=== PATIENT | male | born 1980 | race Caucasian/White ===

== ENCOUNTER 2021-05-06 01:24 | Emergency (ER) | payer MEDICAID ==
[~2021-05-06] VITALS: Ht 165.1 cm; Wt 68.2 kg
--- NOTE | 2021-05-06 02:18 | NUR ---
GENERAL ILLNESS X 1 WEEK, STATES FEVER/COUGH AND ACHINESS ALL OVER.
[2021-05-06 03:12] VITALS: BP 123/82
== END 2021-05-06 03:13 | disposition home or self-care (01) ==
LOC: ER 01:25
DX: B34.9 Viral infection, unspecified (principal); Z20.822 Contact with and (suspected) exposure to COVID-19; R53.1 Weakness; R43.8 Other disturbances of smell and taste; R53.83 Other fatigue; F15.90 Other stimulant use, unspecified, uncomplicated; Z59.0 Homelessness; Z72.89 Other problems related to lifestyle; Z60.2 Problems related to living alone
CPT/HCPCS: 87635; 99283; C9803

== ENCOUNTER 2021-10-28 20:38 | Emergency (ER) | payer MEDICAID ==
[~2021-10-28] VITALS: Ht 165.1 cm; Wt 68.2 kg
[2021-10-28] MEDS ORDERED: acetaminophen 325mg tablet PO STA (20:45)
[2021-10-28] MEDS ORDERED: normal saline 1000ML IV soln IV ONE (20:45)
[2021-10-28] MEDS ORDERED: CefTRIAXone 2gm/D5W 50ml BAG 50 ML IV ONE (20:45)
[2021-10-28] MEDS ORDERED: LORazepam 2 mg/ml vial IV ONE ×2 (20:50→21:05)
[2021-10-28] MEDS ORDERED: normal saline 1000ml 1,000 ML IV ONE ×2 (21:05→22:30)
[2021-10-28 21:20] LABS: BASOPHILS # (AUTO) 0.1 X10'3 (0-0.2); EOSINOPHILS % (AUTO) 0.1 % (0-6); MONOCYTES # (AUTO) 0.6 X10'3 (0-0.9); MONOCYTES % (AUTO) 4.5 % (2-12)
[2021-10-28 21:21] LABS: BASOPHILS % (AUTO) 0.5 % (0-1); HEMOGLOBIN 13.9 g/dl (14.0-17.9); LYMPHOCYTES # (AUTO) 1.6 X10'3 (1.1-4.8); LYMPHOCYTES % (AUTO) 11.8 % (21-51); MEAN CORPUSCULAR HEMOGLOBIN 34.1 PG (27.0-31.0); MEAN CORPUSCULAR HGB CONC 33.9 g/dL (33.0-36.5); MEAN CORPUSCULAR VOLUME 100.6 FL (78-98); MEAN PLATELET VOLUME 8.4 FL (7.4-10.4); NEUTROPHILS # (AUTO) 11.2 X10'3 (1.8-7.7); NEUTROPHILS % (AUTO) 83.1 % (42-75); PLATELET COUNT 353 X10'3 (140-440); RED BLOOD COUNT 4.07 X10'6 (4.70-6.10); RED CELL DISTRIBUTION WIDTH 13.4 % (11.5-14.5); WHITE BLOOD COUNT 13.5 X10'3 (4.5-11.0)
[2021-10-28 21:37] LABS: ALANINE AMINOTRANSFERASE 42 U/L (12-78); ALBUMIN 4.3 G/DL (3.4-5.0); ALBUMIN/GLOBULIN RATIO 1.2 (1.1-1.5); ALKALINE PHOSPHATASE 81 IU/L (46-116); ANION GAP 10 (8-16); ASPARTATE AMINO TRANSFERASE 20 U/L (10-37); BILIRUBIN,TOTAL 0.1 MG/DL (0.1-1.0); BLOOD UREA NITROGEN 19 MG/DL (7-18); BUN/CREATININE RATIO 16.8 (5.4-32.0); CALCIUM 9.3 MG/DL (8.5-10.1); CHLORIDE 105 MMOL/L (99-107); CREATININE 1.13 MG/DL (0.60-1.10); GLUCOSE 109 MG/DL (70-104); POTASSIUM 3.7 MMOL/L (3.5-5.1); SODIUM 140 MMOL/L (135-145); TOTAL CARBON DIOXIDE 24.9 MMOL/L (24-32); TOTAL PROTEIN 7.9 G/DL (6.4-8.2); eGFR 73 ML/MIN
[2021-10-28 21:45] LABS: LIPASE 53 U/L (73-393)
[2021-10-28 21:51] LABS: ETHANOL < 0.010 GM/DL (0.0-0.010)
[2021-10-28 23:06] LABS: URINE AMPHETAMINE SCREEN POSITIVE (Neg); URINE BARBITUATE SCREEN NEGATIVE (Neg); URINE BENZODIAZEPINES SCREEN NEGATIVE (Neg); URINE CANNABINOID SCREEN NEGATIVE (Neg); URINE COCAINE SCREEN NEGATIVE (Neg); URINE METHADONE SCREEN NEGATIVE (Neg); URINE OPIATE SCREEN NEGATIVE (Neg); URINE PHENCYCLIDINE SCREEN NEGATIVE (Neg)
[2021-10-28 23:13] VITALS: BP 144/78
[2021-10-28 23:18] LABS: CLARITY,URINE CLEAR (Clear); COLOR,URINE YELLOW (Yellow); GLUCOSE, URINE NEGATIVE (Neg); KETONES,URINE TRACE mg/dl (Neg); LEUKOCYTE ESTERASE ,URINE NEGATIVE (Neg); NITRITES, URINE NEGATIVE (Neg); OCCULT BLOOD,URINE NEGATIVE (Neg); PROTEIN,URINE NEGATIVE (Neg); UROBILINOGEN,URINE 0.2 E.U/dL (0.2-1.0)
[2021-10-28 23:20] LABS: UA COLLECTION TYPE URINAL
== END 2021-10-28 23:38 | disposition home or self-care (01) ==
LOC: ER 20:39
DX: F15.129 Other stimulant abuse with intoxication, unspecified (principal); R00.0 Tachycardia, unspecified; R61 Generalized hyperhidrosis; Z87.11 Personal history of peptic ulcer disease; Z72.89 Other problems related to lifestyle; Z59.00 Homelessness unspecified
CPT/HCPCS: 36415; 71045; 74176; 80053; 80305; 80320; 81003; 83605; 83690; 83880; 84145; 84484; 85025; 87040; 93005; 96365; 96366; 96375; 96376; 99285; J0696; J2060; J7030

== ENCOUNTER 2021-10-29 00:50 | Emergency (ER) | payer MEDICAID ==
[~2021-10-29] VITALS: Ht 165.1 cm; Wt 70.5 kg
[2021-10-29 01:21] VITALS: BP 153/88
== END 2021-10-29 01:22 ==
LOC: ER 00:51
DX: R10.9 Unspecified abdominal pain (principal); Z87.11 Personal history of peptic ulcer disease; Z56.0 Unemployment, unspecified; Z72.89 Other problems related to lifestyle
CPT/HCPCS: 99283

== ENCOUNTER 2021-10-29 21:56 | Emergency (ER) | payer MEDICAID ==
[~2021-10-29] VITALS: Ht 165.1 cm; Wt 63.1 kg
[2021-10-29 22:45] VITALS: BP 142/104
[2021-10-30] MEDS ORDERED: OLANZapine 2.5MG tablet PO STA (00:36)
== END 2021-10-30 00:55 | disposition home or self-care (01) ==
LOC: ER 21:58
DX: F15.10 Other stimulant abuse, uncomplicated (principal); Z87.11 Personal history of peptic ulcer disease; Z72.89 Other problems related to lifestyle; Z59.00 Homelessness unspecified
CPT/HCPCS: 99283

== ENCOUNTER 2023-02-21 15:52 | Emergency (ER) | payer MEDICAID ==
[~2023-02-21] VITALS: Ht 165.1 cm; Wt 70.5 kg
[2023-02-21 16:35] VITALS: BP 147/88
[2023-02-21] MEDS ORDERED: LORazepam 1 MG tablet PO ONE (16:50)
== END 2023-02-21 17:18 | disposition home or self-care (01) ==
LOC: ER 15:53
DX: F15.10 Other stimulant abuse, uncomplicated (principal); F17.200 Nicotine dependence, unspecified, uncomplicated; Z59.00 Homelessness unspecified; Z56.0 Unemployment, unspecified
CPT/HCPCS: 99283

== ENCOUNTER 2023-02-23 04:25 | Emergency (ER) | payer MEDICAID ==
[~2023-02-23] VITALS: Ht 165.1 cm; Wt 75.0 kg
--- NOTE | 2023-02-23 04:54 | NUR ---
PT CHANGED INTO GREEN SCRUBS, ROOM CLEARED FOR SAFETY. PT IS PACING ROOM, RESPONDING TO INTERNAL STIMULI. APPEARS TO BE LOOKING AT THINGS THAT ARE NOT THERE. STUFFING PAPER TOWELS DOWN HIS PANTS
[2023-02-23 05:01] LABS: BASOPHILS # (AUTO) 0.1 X10'3 (0-0.2); BASOPHILS % (AUTO) 1.1 % (0-1); EOSINOPHILS # (AUTO) 0.1 X10'3 (0-0.9); EOSINOPHILS % (AUTO) 1.2 % (0-6); HEMATOCRIT 42.7 % (42.0-52.0); HEMOGLOBIN 14.4 g/dl (14.0-17.9); LYMPHOCYTES # (AUTO) 2.5 X10'3 (1.1-4.8); LYMPHOCYTES % (AUTO) 22.7 % (21-51); MEAN CORPUSCULAR HEMOGLOBIN 34.3 PG (27.0-31.0); MEAN CORPUSCULAR HGB CONC 33.7 g/dL (33.0-36.5); MEAN CORPUSCULAR VOLUME 101.8 FL (78-98); MEAN PLATELET VOLUME 7.8 FL (7.4-10.4); MONOCYTES # (AUTO) 1.2 X10'3 (0-0.9); MONOCYTES % (AUTO) 10.5 % (2-12); NEUTROPHILS # (AUTO) 7.1 X10'3 (1.8-7.7); NEUTROPHILS % (AUTO) 64.5 % (42-75); PLATELET COUNT 327 X10'3 (140-440); RED CELL DISTRIBUTION WIDTH 13.4 % (11.5-14.5)
[2023-02-23 05:11] LABS: CLARITY,URINE SLIGHTLY CLOUDY (Clear); COLOR,URINE YELLOW (Yellow); GLUCOSE, URINE NEGATIVE (Neg); KETONES,URINE TRACE mg/dl (Neg); LEUKOCYTE ESTERASE ,URINE NEGATIVE (Neg); NITRITES, URINE NEGATIVE (Neg); OCCULT BLOOD,URINE NEGATIVE (Neg); PROTEIN,URINE TRACE mg/dl (Neg); UROBILINOGEN,URINE 0.2 E.U/dL (0.2-1.0)
[2023-02-23 05:13] LABS: ALANINE AMINOTRANSFERASE 33 U/L (12-78); ALBUMIN 4.1 G/DL (3.4-5.0); ALBUMIN/GLOBULIN RATIO 1.1 (1.1-1.5); ALKALINE PHOSPHATASE 83 IU/L (46-116); ANION GAP 8 (8-16); ASPARTATE AMINO TRANSFERASE 29 U/L (10-37); BILIRUBIN,TOTAL 0.7 MG/DL (0.1-1.0); BLOOD UREA NITROGEN 14 MG/DL (7-18); BUN/CREATININE RATIO 11.9 (10.0-20.0); CHLORIDE 101 MMOL/L (99-107); CREATININE 1.18 MG/DL (0.60-1.10); GLUCOSE 121 MG/DL (70-104); POTASSIUM 3.5 MMOL/L (3.5-5.1); SODIUM 136 MMOL/L (135-145); TOTAL CARBON DIOXIDE 27.2 MMOL/L (24-32); TOTAL PROTEIN 7.7 G/DL (6.4-8.2); eGFR 68 ML/MIN
[2023-02-23] MEDS ORDERED: OLANZapine 2.5MG tablet PO SCH ×2 (05:15→20:00)
[2023-02-23 05:16] LABS: MUCUS STRANDS MANY /LPF (Neg); SQUAMOUS EPITHELIAL CELL,UR MANY /LPF (FEW); UA COLLECTION TYPE CLN CATCH MIDSTREAM; URINE AMPHETAMINE SCREEN POSITIVE (Neg); URINE BARBITUATE SCREEN NEGATIVE (Neg); URINE BENZODIAZEPINES SCREEN NEGATIVE (Neg); URINE CANNABINOID SCREEN NEGATIVE (Neg); URINE COCAINE SCREEN NEGATIVE (Neg); URINE METHADONE SCREEN NEGATIVE (Neg); URINE OPIATE SCREEN NEGATIVE (Neg); URINE PHENCYCLIDINE SCREEN NEGATIVE (Neg)
[2023-02-23 05:17] LABS: BACTERIA,URINE NONE SEEN /HPF (Neg); WBC,URINE 0-4 /HPF (0-4)
[2023-02-23 05:18] LABS: COARSE GRANULAR CAST 0-3 /LPF (NEGATIVE)
--- NOTE | 2023-02-23 05:20 | NUR ---
PT COMPLIANT WITH MEDS BUT CONTINUES TO STAND OUTSIDE HIS ROOM WITH DOORS SHUT, LOOKING INSIDE AND RESPONDING TO INTERNAL STIMULI
[2023-02-23 05:38] LABS: ETHANOL < 0.010 GM/DL (0.0-0.010)
--- NOTE | 2023-02-23 06:13 | NUR ---
OXYGEN TANK REMOVED FROM ROOM PT IS HAVING DELUSIONS THAT IT IS A "CAN OF BEANS" PLACED IN THE ROOM TO "LURE THE BEAR" INTO ROOM.
--- NOTE | 2023-02-23 06:29 | NUR ---
received patient from ED. Assisted to to room 24. Patient laying down at this time. Will assume care of patient
[2023-02-23] MEDS ORDERED: nicotine 14mg patch - 24hr TD ONE (08:20)
--- NOTE | 2023-02-23 10:00 | NUR ---
patient slept through breakfast. order for nicotine patch and zyprexa BID. vitals remain stable patient sleeping hard since he left ER room.
--- NOTE | 2023-02-23 12:38 | NUR ---
Pt asleep still. Lunch at bedside. unable to wake up to eat. Therapist saw patient and said she will come back after he sleeps a few more hours. all safety measures in place and call light in reach. will continue to monitor.
--- NOTE | 2023-02-23 15:16 | NUR ---
patient continues to sleep.
--- NOTE | 2023-02-23 17:34 | NUR ---
patient awake at bedside. has a blank look on face. speech is spiratic and unable to complete a full sentence. water and coffee at bedside. denies any pain at this time. all safety measures in place and call light in reach.will continue to monitor.
[2023-02-23 19:24] VITALS: BP 115/73
== END 2023-02-23 19:27 | disposition home or self-care (01) ==
LOC: ER 04:25
DX: F29 Unspecified psychosis not due to a substance or known physiological condition (principal); Z20.822 Contact with and (suspected) exposure to COVID-19; F15.10 Other stimulant abuse, uncomplicated; Z59.00 Homelessness unspecified; Z56.0 Unemployment, unspecified
CPT/HCPCS: 36415; 80053; 80305; 80320; 81001; 84443; 85025; 87811; 99285

== ENCOUNTER 2023-04-09 05:55 | Emergency (ER) | payer MEDICAID ==
[~2023-04-09] VITALS: Ht 165.1 cm; Wt 75.0 kg
[2023-04-09 06:17] VITALS: BP 146/107; PULSE 117; RESP 20; TEMP 99.3; O2SAT 97
[2023-04-09] MEDS ORDERED: OLAN5TAB3 PO (07:54)
[2023-04-09] MEDS ORDERED: LORazepam 1 MG tablet PO ONE (07:55)
[2023-04-09] MEDS ORDERED: OLANZapine 5mg rapidly disint. tablet PO ONE (07:55)
[2023-04-09 08:08] LABS: BILIRUBIN,URINE NEGATIVE (Neg); CLARITY,URINE CLEAR (Clear); COLOR,URINE YELLOW (Yellow); GLUCOSE, URINE NEGATIVE (Neg); KETONES,URINE NEGATIVE (Neg); LEUKOCYTE ESTERASE ,URINE NEGATIVE (Neg); NITRITES, URINE NEGATIVE (Neg); OCCULT BLOOD,URINE NEGATIVE (Neg); PH,URINE 5.5 (4.8-8.0); PROTEIN,URINE 30 mg/dl (Neg); UROBILINOGEN,URINE 0.2 E.U/dL (0.2-1.0)
[2023-04-09 08:11] LABS: UA COLLECTION TYPE VOIDED
[2023-04-09 08:18] LABS: BACTERIA,URINE NONE SEEN /HPF (Neg); FINE GRANULAR CAST 0-3 /LPF (NEGATIVE); HYALINE CASTS 0-3 /LPF (NEGATIVE); MUCUS STRANDS FEW /LPF (Neg); RBC,URINE NONE SEEN /HPF (0-2); SQUAMOUS EPITHELIAL CELL,UR FEW /LPF (FEW); WBC,URINE NONE SEEN /HPF (0-4)
[2023-04-09 08:39] LABS: URINE AMPHETAMINE SCREEN POSITIVE (Neg); URINE BARBITUATE SCREEN NEGATIVE (Neg); URINE BENZODIAZEPINES SCREEN NEGATIVE (Neg); URINE CANNABINOID SCREEN NEGATIVE (Neg); URINE COCAINE SCREEN NEGATIVE (Neg); URINE METHADONE SCREEN NEGATIVE (Neg); URINE OPIATE SCREEN NEGATIVE (Neg); URINE PHENCYCLIDINE SCREEN NEGATIVE (Neg)
== END 2023-04-09 08:52 | disposition home or self-care (01) ==
LOC: ER 05:56
DX: F41.9 Anxiety disorder, unspecified (principal); F15.20 Other stimulant dependence, uncomplicated; F17.200 Nicotine dependence, unspecified, uncomplicated; Z79.899 Other long term (current) drug therapy; Z59.00 Homelessness unspecified
CPT/HCPCS: 80305; 81001; 99283

== ENCOUNTER 2023-12-02 04:33 | Emergency (ER) | payer MEDICAID ==
[~2023-12-02] VITALS: Ht 165.1 cm; Wt 70.5 kg
[~2023-12-02 04:33] MED LIST: OLAN5TAB3 PO
[2023-12-02 04:39] VITALS: TEMP 98.9
[2023-12-02 07:10] VITALS: BP 144/96; PULSE 111; RESP 17; O2SAT 99
== END 2023-12-02 09:32 | disposition home or self-care (01) ==
LOC: ER 04:33
DX: F15.90 Other stimulant use, unspecified, uncomplicated (principal); F41.9 Anxiety disorder, unspecified; Z56.0 Unemployment, unspecified; Z59.9 Problem related to housing and economic circumstances, unspecified; Z87.19 Personal history of other diseases of the digestive system; Z79.899 Other long term (current) drug therapy
CPT/HCPCS: 93005; 99283

== ENCOUNTER 2023-12-02 20:08 | Emergency (ER) | payer MEDICAID ==
[~2023-12-02] VITALS: Ht 165.1 cm; Wt 70.5 kg
[2023-12-03] MEDS: olanzapine 10mg tablet PO STA (05:13)
[2023-12-03 05:22] LABS: BASOPHILS # (AUTO) 0.2 X10'3 (0-0.2); BASOPHILS % (AUTO) 1.8 % (0-1); EOSINOPHILS # (AUTO) 0.1 X10'3 (0-0.9); EOSINOPHILS % (AUTO) 0.9 % (0-6); HEMATOCRIT 44.2 % (42.0-52.0); HEMOGLOBIN 14.8 g/dl (14.0-17.9); LYMPHOCYTES % (AUTO) 17.8 % (21-51); MEAN CORPUSCULAR HEMOGLOBIN 33.9 PG (27.0-31.0); MEAN CORPUSCULAR HGB CONC 33.5 g/dL (33.0-36.5); MEAN CORPUSCULAR VOLUME 101.1 FL (78-98); MEAN PLATELET VOLUME 8.2 FL (7.4-10.4); MONOCYTES # (AUTO) 1.1 X10'3 (0-0.9); MONOCYTES % (AUTO) 9.9 % (2-12); NEUTROPHILS # (AUTO) 7.8 X10'3 (1.8-7.7); NEUTROPHILS % (AUTO) 69.6 % (42-75); PLATELET COUNT 327 X10'3 (140-440); RED BLOOD COUNT 4.37 X10'6 (4.70-6.10); RED CELL DISTRIBUTION WIDTH 12.8 % (11.5-14.5); WHITE BLOOD COUNT 11.3 X10'3 (4.5-11.0)
[2023-12-03 05:28] LABS: ALBUMIN 4.3 G/DL (3.4-5.0); ANION GAP 13 (8-16); BLOOD UREA NITROGEN 17 MG/DL (7-18); BUN/CREATININE RATIO 16.2 (10.0-20.0); CALCIUM 9.7 MG/DL (8.5-10.1); CHLORIDE 99 MMOL/L (99-107); CREATININE 1.05 MG/DL (0.60-1.10); ETHANOL < 10 MG/DL (<10); GLUCOSE 97 MG/DL (70-104); POTASSIUM 3.9 MMOL/L (3.5-5.1); SODIUM 137 MMOL/L (135-145); TOTAL CARBON DIOXIDE 24.6 MMOL/L (24-32); eCRCL 81 ML/MIN; eGFR 78 ML/MIN
[2023-12-03 06:12] LABS: BILIRUBIN,URINE SMALL (Neg); CLARITY,URINE CLEAR (Clear); GLUCOSE, URINE NEGATIVE (Neg); KETONES,URINE >=80 mg/dl (Neg); LEUKOCYTE ESTERASE ,URINE NEGATIVE (Neg); NITRITES, URINE NEGATIVE (Neg); OCCULT BLOOD,URINE NEGATIVE (Neg); PROTEIN,URINE TRACE mg/dl (Neg); UROBILINOGEN,URINE 0.2 E.U/dL (0.2-1.0)
[2023-12-03 06:21] LABS: COLOR,URINE DARK YELLOW (Yellow); UA COLLECTION TYPE CLN CATCH MIDSTREAM
[2023-12-03 06:23] LABS: BACTERIA,URINE NONE SEEN /HPF (Neg); HYALINE CASTS 0-3 /LPF (NEGATIVE); MUCUS STRANDS MODERATE /LPF (Neg); RBC,URINE 0-2 /HPF (0-2); SQUAMOUS EPITHELIAL CELL,UR FEW /LPF (FEW); WBC,URINE 0-4 /HPF (0-4)
[2023-12-03 06:42] LABS: URINE AMPHETAMINE SCREEN POSITIVE (Neg); URINE BARBITUATE SCREEN NEGATIVE (Neg); URINE BENZODIAZEPINES SCREEN NEGATIVE (Neg); URINE CANNABINOID SCREEN NEGATIVE (Neg); URINE COCAINE SCREEN NEGATIVE (Neg); URINE METHADONE SCREEN NEGATIVE (Neg); URINE OPIATE SCREEN POSITIVE (Neg); URINE PHENCYCLIDINE SCREEN NEGATIVE (Neg)
[2023-12-03 09:25] VITALS: BP 129/74; PULSE 100; RESP 14; TEMP 98; O2SAT 98
== END 2023-12-03 10:37 | disposition still patient (30) ==
LOC: ER 20:09
DX: F15.10 Other stimulant abuse, uncomplicated (principal); Z20.822 Contact with and (suspected) exposure to COVID-19; Z79.899 Other long term (current) drug therapy
CPT/HCPCS: 36415; 80048; 80305; 80320; 81001; 85025; 87811; 93005; 99284

== ENCOUNTER 2024-04-13 20:53 | Emergency (ER) | payer MEDICAID ==
[~2024-04-13] VITALS: Ht 165.1 cm; Wt 69.5 kg
[2024-04-13 20:55] VITALS: TEMP 97.8
[2024-04-13] MEDS ORDERED: OLANZapine 2.5MG tablet PO SCH (21:40)
[2024-04-13] MEDS: olanzapine 10mg tablet PO SCH (21:49)
[2024-04-13 21:54] LABS: BASOPHILS # (AUTO) 0.2 X10'3 (0-0.2); BASOPHILS % (AUTO) 1.8 % (0-1); EOSINOPHILS # (AUTO) 0.2 X10'3 (0-0.9); EOSINOPHILS % (AUTO) 1.8 % (0-6); HEMATOCRIT 43.2 % (42.0-52.0); HEMOGLOBIN 14.6 g/dl (14.0-17.9); LYMPHOCYTES # (AUTO) 3.6 X10'3 (1.1-4.8); MEAN CORPUSCULAR HEMOGLOBIN 34.5 PG (27.0-31.0); MEAN CORPUSCULAR HGB CONC 33.8 g/dL (33.0-36.5); MEAN CORPUSCULAR VOLUME 101.9 FL (78-98); MEAN PLATELET VOLUME 8.1 FL (7.4-10.4); MONOCYTES % (AUTO) 9.4 % (2-12); NEUTROPHILS # (AUTO) 5.6 X10'3 (1.8-7.7); PLATELET COUNT 291 X10'3 (140-440); RED BLOOD COUNT 4.24 X10'6 (4.70-6.10); WHITE BLOOD COUNT 10.6 X10'3 (4.5-11.0)
[2024-04-13 22:03] LABS: ALBUMIN 4.3 G/DL (3.4-5.0); ANION GAP 14 (8-16); BLOOD UREA NITROGEN 23 MG/DL (7-18); BUN/CREATININE RATIO 24.7 (10.0-20.0); CALCIUM 8.9 MG/DL (8.5-10.1); CHLORIDE 101 MMOL/L (99-107); CREATININE 0.93 MG/DL (0.60-1.10); GLUCOSE 74 MG/DL (70-104); POTASSIUM 3.8 MMOL/L (3.5-5.1); SODIUM 137 MMOL/L (135-145); TOTAL CARBON DIOXIDE 22.4 MMOL/L (24-32); eCRCL 91 ML/MIN; eGFR 90 ML/MIN
[2024-04-13 22:15] LABS: ETHANOL < 10 MG/DL (<10)
[2024-04-13] MEDS ORDERED: NO HOME MEDS (22:26)
[2024-04-13 23:03] LABS: URINE AMPHETAMINE SCREEN POSITIVE (Neg); URINE BARBITUATE SCREEN NEGATIVE (Neg); URINE BENZODIAZEPINES SCREEN NEGATIVE (Neg); URINE CANNABINOID SCREEN NEGATIVE (Neg); URINE COCAINE SCREEN NEGATIVE (Neg); URINE METHADONE SCREEN NEGATIVE (Neg); URINE OPIATE SCREEN NEGATIVE (Neg); URINE PHENCYCLIDINE SCREEN NEGATIVE (Neg)
[2024-04-14 05:47] VITALS: BP 83/60; PULSE 88; O2SAT 96
[2024-04-14] MEDS ORDERED: OLANZapine 2.5MG tablet PO SCH (08:00)
[2024-04-14 08:25] VITALS: RESP 17
== END 2024-04-14 15:17 | disposition home or self-care (01) ==
LOC: ER 20:54
DX: F22 Delusional disorders (principal); F60.0 Paranoid personality disorder; F15.90 Other stimulant use, unspecified, uncomplicated; Z72.89 Other problems related to lifestyle; Z60.2 Problems related to living alone; Z59.00 Homelessness unspecified; Z56.0 Unemployment, unspecified; Z20.822 Contact with and (suspected) exposure to COVID-19
CPT/HCPCS: 36415; 80048; 80305; 80320; 84443; 85025; 87811; 99284

== ENCOUNTER 2024-06-27 17:57 | Emergency (ER) | payer MEDICAID ==
[~2024-06-27] VITALS: Ht 165.1 cm; Wt 72.7 kg
[~2024-06-27 17:57] MED LIST changes: +NO HOME MEDS; -OLAN5TAB3 PO
[2024-06-27 18:01] VITALS: BP 122/70; TEMP 97.5
[2024-06-27] MEDS ORDERED: DEXAMETHASONE 6 MG TABLET PO SCH (19:25)
[2024-06-27] MEDS: albuterol 2.5 MG/3 ML nebule NEB ONE (19:45)
[2024-06-27 19:46] VITALS: PULSE 88; RESP 16; O2SAT 96
[2024-06-27] MEDS: DEXAMETHASONE 6 MG TABLET PO ONE (19:47)
[2024-06-27 19:57] VITALS: PULSE 88; RESP 16; O2SAT 96
[2024-06-27] MEDS ORDERED: ALBU8HFA INH (20:01)
[2024-06-27] MEDS ORDERED: DEC4T PO (20:01)
== END 2024-06-27 20:11 | disposition home or self-care (01) ==
LOC: ER 17:58
DX: R05.1 Acute cough (principal); Z20.822 Contact with and (suspected) exposure to COVID-19; F15.90 Other stimulant use, unspecified, uncomplicated; F17.200 Nicotine dependence, unspecified, uncomplicated; Z87.11 Personal history of peptic ulcer disease; Z59.00 Homelessness unspecified
CPT/HCPCS: 36415; 71045; 87811; 94640; 94760; 99284; J8540

== ENCOUNTER 2024-12-01 20:01 | Emergency (ER) | payer MEDICAID ==
[~2024-12-01] VITALS: Ht 165.1 cm; Wt 68.4 kg
[2024-12-01 20:16] VITALS: BP 110/70; PULSE 89; RESP 18; O2SAT 96
[2024-12-01] MEDS ORDERED: DIPH25TA62 PO (20:50)
[2024-12-01] MEDS: diphenhydrAMINE 50 mg/ml inj IM ONE (21:14)
[2024-12-01 21:20] VITALS: TEMP 98.3
== END 2024-12-01 21:20 | disposition home or self-care (01) ==
LOC: ER 20:01
DX: G24.9 Dystonia, unspecified (principal); T78.8XXA Other adverse effects, not elsewhere classified, initial encounter; F15.90 Other stimulant use, unspecified, uncomplicated; X58.XXXA Exposure to other specified factors, initial encounter
CPT/HCPCS: 96372; 99283; J1200

== ENCOUNTER 2024-12-28 00:15 | Emergency (ER) | payer MEDICAID ==
[~2024-12-28] VITALS: Ht 165.1 cm; Wt 77.0 kg
[~2024-12-28 00:15] MED LIST changes: +DIPH25TA62 PO
[2024-12-28 00:17] VITALS: TEMP 99.2
[2024-12-28] MEDS: haloperidol lactate 5mg/ml inj IM ONE (00:33)
[2024-12-28] MEDS: diazepam inj 5 MG/ML inj. IV ONE (00:33)
[2024-12-28] MEDS: diphenhydrAMINE 50 mg/ml inj IV ONE (00:33)
--- NOTE | 2024-12-28 00:48 | ELECTROCARDIOGRAPH REPORT ---
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 Dede Worthington Measurements Intervals [place] Rate: 124 P: 19 UT: 141 QRS: 22 QRSD: 77 T: 64 QT: 300 QTc: 431 Interpretive Statements Sinus tachycardia Electronically Signed On 12-28-2024 1:55:[address] Dede Worthington Please click the below link to view image of tracing.
--- NOTE | 2024-12-28 01:29 | Physician Documentation ---
History of Present Illness ~ Chief Complaint: Hallucinations Stated Complaint: PARANOID Time Seen by MD: 01:28 OK to notify your PCP?: Yes Primary Medical Doctor: NONE Source: patient, RN/MD, EMS, RN notes reviewed, EMS notes reviewed, old records Mode of Arrival: EMS, Ambulatory Exam Limitations: no limitations HPI 44-year-old male, with a history of bipolar disorder and depression, brought to the ED via EMS with concerns of paranoia and visual/auditory hallucinations. Patient believes people are trying to hurt him. He is also seeing animals that are trying to harm him. Patient admits that he stopped taking his psychiatric medications approximately one week ago. He also admits to using methamphetamine this evening, after being clean since August. Finally he notes some body aches and mild shortness of breath at this time. Medication Reconciliation Allergies: Coded Allergies: No Known Allergies (Unverified , 12/28/24) Scheduled Aripiprazole (Aripiprazole), 1 TAB PO DAILY, (Reported) Sertraline HCl (Sertraline HCl), 1 TAB PO DAILY, (Reported) Discontinued Medications Diphenhydramine HCl (Benadryl Allergy), 2 TAB PO HS Discontinued Reason: Other Home Med List (No Home Medications), (Reported) Discontinued Reason: Other Past Medical History Past Medical History: Peptic Ulcer Disease, Bipolar, Depression Past Surgical History: no surgical history Alcohol Use: Occasionally Drug Use: methamphetamine Lives with: Alone Lives In: Homeless Occupation: unemployed Review of Systems All Other Systems at this time: Reviewed and Negative ROS As stated above in the HPI, otherwise all systems are reviewed and negative. Physical Exam Vital Signs: RN Vital Signs have been reviewed: Yes, Temperature: 99.2, Source: Oral, Heart Rate: 145, Respiratory Rate: 16, BP: 140/85, Pulse Oximetry: 97, Weight: 77.000 Oxygen Flow Rate: 0 Pulse Oximetry Reflects: adequate oxygenation Physical Exam General: The patient is well developed, well nourished, nontoxic appearing and is in mild distress. Skin: [place], warm and dry with no rashes. HEENT: Head was normocephalic and atraumatic. Chest: Clear to auscultation bilaterally without wheezes, rales or rhonchi. No accessory muscle use. No dullness to percussion. Heart: Tachycardic, regular rhythm. S1, S2. No murmurs. Palpation of the chest wall was normal. No rubs or thrills. Abdomen: Soft, nontender and nondistended. Positive bowel sounds. No guarding or rebound. Extremities: No cyanosis, clubbing or edema. The patient moves all extremities. Pulses were equal and symmetric. Neurologic: Motor and sensation grossly intact. Cranial nerves II-XII grossly intact. A & O x4. Psychologic: Clutching chest with his arms. Positive auditory and visual hallucinations. No SI or HI. No agitation. Progress Progress Note 0545: Patient denies chest pain, shortness of breath, any skin breaks or redness. He did have some mild abdominal pain earlier. No known source for his white count. 0630: Care of patient passed to Dr. Chambers, oncoming physician, pending repeats lab results after fluids. Results/Orders Reviewed/noted all lab results: Yes Results/Orders Orders - JAMES DE LA CRUZ MD Electrocardiogram (12/28/24 00:43) Med Rec (12/28/24:34) 1799.11 (12/28/24:34) Close Observation Level (12/28/24:34) Covid19 Binax Poc Result Entry (12/28/24:34) Substance Use Navigator (12/28/24:34) Chest,Single View (12/28/24 04:04) Completed Orders - JAMES DE LA CRUZ MD Diazepam Inj (Valium Inj) (12/28/24 00:30) Diphenhydramine Inj (Benadryl Inj.) (12/28/24 00:30) Haloperidol Lact. (Haldol) (12/28/24 00:30) Electrocardiogram (12/28/24 00:43) Cbc/Diff (12/28/24 01:34) Drug Screen, Urine (12/28/24:34) Ethanol (12/28/24:34) TSH (12/28/24:34) BMP (12/28/24:34) Regular Diet (12/28/24 Breakfast) Aripiprazole Tablet (Abilify Tablet) (12/28/24 01:45) Nicotine 14mg Patch-24hr (Habitrol Patch (12/28/24 02:40) Ua With Microscopic (12/28/24 03:05) Normal Saline 1000ml (Sodium Chloride 10 (12/28/24 04:05) Chest,Single View (12/28/24 04:04) Procalcitonin (12/28/24 04:04) Aripiprazole Tablet (Abilify Tablet) (12/29/24 08:00) Sertraline Tablet (Zoloft Tablet) (12/29/24 08:00) Laboratory Tests Test 12/28/24 00:30 12/28/24 02:45 12/28/24 03:05 12/28/24 09:35 White Blood Count 23.7 H 12.9 H Red Blood Count 4.67 L 3.91 L Hemoglobin 16.1 13.5 L Hematocrit 46.9 39.1 L Mean Corpuscular Volume 100.4 H 100.2 H Mean Corpuscular Hemoglobin 34.6 H 34.5 H Mean Corpuscular Hemoglobin Concent 34.4 34.4 Red Cell Distribution Width 13.3 13.0 Platelet Count 348 264 Mean Platelet Volume 8.2 7.5 Neutrophils (%) (Auto) 85.0 H 66.6 Lymphocytes (%) (Auto) 8.0 L 21.1 Monocytes (%) (Auto) 6.7 10.9 Eosinophils (%) (Auto) 0 0.5 Basophils (%) (Auto) 0.3 0.9 Neutrophils # (Auto) 20.1 H 8.6 H Lymphocytes # (Auto) 1.9 2.7 Monocytes # (Auto) 1.6 H 1.4 H Eosinophils # (Auto) 0.0 0.1 Basophils # (Auto) 0.1 0.1 CBC Comment Sodium Level 143 Potassium Level 4.3 Chloride Level 107 Carbon Dioxide Level 23.3 L Anion Gap 13 Blood Urea Nitrogen 17 Creatinine 1.33 H Estimated GFR/1.73 m2 59 BUN/Creatinine Ratio 12.8 Glucose Level 115 H Calcium Level 9.3 Albumin 4.7 Procalcitonin 1.15 H Thyroid Stimulating Hormone (TSH) 0.63 Chemistry Comments Ethyl Alcohol Level < 10 SARS-CoV-2 Antigen (Rapid) Negative Urine Specimen Description Cln catch midstream Urine Color Yellow Urine Clarity Clear Urine pH 5.5 Urine Specific [place] >=1.030 Urine Protein Negative Urine Glucose (UA) Negative Urine Ketones Negative Urine Occult Blood Trace-intact Urine Nitrite Negative Urine Bilirubin Negative Urine Urobilinogen 0.2 Urine Leukocyte Esterase Negative Urine RBC 0-2 Urine WBC 0-4 Urine Squamous Epithelial Cells Few Urine Bacteria Few Urine Hyaline Casts 0-3 Urine Mucus Few Urine Sperm Few Volume Urine Centrifuged 10 ml Urine Comment Urine Opiates Screen Negative Urine Methadone Screen Negative Urine Fentanyl Screen Negative Urine Barbiturates Screen Negative Urine Phencyclidine Screen Negative Urine Amphetamines Screen Positive Urine Benzodiazepines Screen Positive Urine Cocaine Screen Negative Urine Cannabinoids Screen Negative Drug Screen Comment Lactic Acid Level 2.6 H Test 12/28/24 12:49 Lactic Acid Level 1.3 Microbiology Date/Time Source Procedure Growth Status 12/28/24 09:53 Blood Hand Right Blood Culture - Preliminary NO GROWTH AFTER 4 DAYS Resulted Re-Evaluation Re-Evaluation : Re-Evaluation: Unchanged Progress Patient was medically cleared for mental health evaluation. Patient had significant WBC at 23.7 MCV 100.4 consistent with heavy drinking no anemia hemoglobin 16 hematocrit 46. Platelets 348. Chemistry was reassuring with a BUN of 17 creatinine 1.33 with a mild dehydration. Lactic acid was elevated 2.2nd one after hydration was 1.3 procalcitonin was elevated at 1.15 suggesting possibility of infection however urinalysis was within normal limits. Chest x- ray was also within normal limits. Tox screen was positive for methamphetamine and benzodiazepines. He was no clear etiology. However after hydration patient later had a white count of 12.9 suggesting no actual infection. There was no need for any antibiotics at this time. Patient will be signed out to the next physician in case he spikes a fever or decompensates but otherwise patient was medically cleared for mental health treatment transport and care. 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 James De La Cruz Measurements Intervals [place] Rate: 124 P: 19 SC: 141 QRS: 22 QRSD: 77 T: 64 QT: 300 QTc: 431 Interpretive Statements Sinus tachycardia Electronically Signed On 12-28-2024 1:55:[address] James De La Cruz (interpreted by me) Chest X-Ray : Additional Comments CHEST RADIOGRAPH Indication: cough wbc elevated Technique: Single frontal view of the chest was obtained COMPARISON: DI CHEST,SINGLE VIEW on DOS: 06/27/24, CHEST,SINGLE VIEW on DOS: 10/28/21 FINDINGS: Lines and Tubes: None Lungs: Clear Pleura: No effusion. No pneumothorax. Cardiomediastinal contours: Unremarkable Bones: Unremarkable IMPRESSION: 1. No acute disease. Reviewed by me, Dr. De La Cruz. Medical Decision Making Findings Was evaluated by [facility]. 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 At this point he is no longer hearing voices and has a safety plan for discharge. States he was ready to go home Differential Dx:Considerations: Include: Alcohol abuse, Anxiety, Bipolar disorder, Conversion disorder, Depression, Encephaloathy, Homicidal, Panic disorder, Personality disorder, Schizophrenia, Substance abuse, Suicidal, Other Departure Disposition: 30 STILL A PATIENT Impression: Primary Impression: Psychosis Qualified Codes: F29 - Unspecified psychosis not due to a substance or known physiological condition Additional Impression: Leukocytosis Qualified Codes: D72.829 - Elevated white blood cell count, unspecified Condition: Stable Education Educated: Patient Educated regarding: diagnosis, need for follow up Signature Scribe Signature: Scribed for James De La Cruz MD by Dora Hutson . 12/28/24 01:59 Attestation: The note accurately reflects work and decisions made by me.James De La Cruz MD 12/28/24 01:29 JAMES DE LA CRUZ MD December 28, 2024 01:29 DORA COCHRAN December 28, 2024 02:07 MCKENZIE OLIVAS NP December 28, 2024 14:29
[2024-12-28 01:45] LABS: BASOPHILS # (AUTO) 0.1 X10'3 (0-0.2); BASOPHILS % (AUTO) 0.3 % (0-1); EOSINOPHILS % (AUTO) 0 % (0-6); HEMATOCRIT 46.9 % (42.0-52.0); HEMOGLOBIN 16.1 g/dl (14.0-17.9); LYMPHOCYTES # (AUTO) 1.9 X10'3 (1.1-4.8); MEAN CORPUSCULAR HEMOGLOBIN 34.6 PG (27.0-31.0); MEAN CORPUSCULAR HGB CONC 34.4 g/dL (33.0-36.5); MEAN CORPUSCULAR VOLUME 100.4 FL (78-98); MEAN PLATELET VOLUME 8.2 FL (7.4-10.4); MONOCYTES # (AUTO) 1.6 X10'3 (0-0.9); MONOCYTES % (AUTO) 6.7 % (2-12); NEUTROPHILS # (AUTO) 20.1 X10'3 (1.8-7.7); PLATELET COUNT 348 X10'3 (140-440); RED BLOOD COUNT 4.67 X10'6 (4.70-6.10); RED CELL DISTRIBUTION WIDTH 13.3 % (11.5-14.5); WHITE BLOOD COUNT 23.7 X10'3 (4.5-11.0)
[2024-12-28 01:52] LABS: ALBUMIN 4.7 G/DL (3.4-5.0); ANION GAP 13 (8-16); BLOOD UREA NITROGEN 17 MG/DL (7-18); BUN/CREATININE RATIO 12.8 (10.0-20.0); CALCIUM 9.3 MG/DL (8.5-10.1); CHLORIDE 107 MMOL/L (99-107); CREATININE 1.33 MG/DL (0.60-1.10); GLUCOSE 115 MG/DL (70-104); POTASSIUM 4.3 MMOL/L (3.5-5.1); SODIUM 143 MMOL/L (135-145); TOTAL CARBON DIOXIDE 23.3 MMOL/L (24-32); eCRCL 63 ML/MIN; eGFR 59 ML/MIN
[2024-12-28 02:20] LABS: THYROID STIMULATING HORMONE 0.63 ulU/ml (0.34-4.50)
[2024-12-28 02:22] LABS: ETHANOL < 10 MG/DL (<10)
[2024-12-28] MEDS ORDERED: ARIP5TAB53 PO (02:33)
[2024-12-28] MEDS ORDERED: SERT-432 PO (02:33)
[2024-12-28] MEDS: aripiprazole 5mg tablet PO SCH (02:44)
[2024-12-28] MEDS: nicotine 14mg patch - 24hr TD ONE (02:44)
[2024-12-28 03:45] LABS: BILIRUBIN,URINE NEGATIVE (Neg); CLARITY,URINE CLEAR (Clear); COLOR,URINE YELLOW (Yellow); GLUCOSE, URINE NEGATIVE (Neg); KETONES,URINE NEGATIVE (Neg); LEUKOCYTE ESTERASE ,URINE NEGATIVE (Neg); NITRITES, URINE NEGATIVE (Neg); OCCULT BLOOD,URINE TRACE-INTACT (Neg); PH,URINE 5.5 (4.8-8.0); PROTEIN,URINE NEGATIVE (Neg); UROBILINOGEN,URINE 0.2 E.U/dL (0.2-1.0)
[2024-12-28 03:46] LABS: UA COLLECTION TYPE CLN CATCH MIDSTREAM
[2024-12-28 03:53] LABS: BACTERIA,URINE FEW /HPF (Neg); HYALINE CASTS 0-3 /LPF (NEGATIVE); MUCUS STRANDS FEW /LPF (Neg); RBC,URINE 0-2 /HPF (0-2); SPERM FEW /HPF (NEGATIVE); SQUAMOUS EPITHELIAL CELL,UR FEW /LPF (FEW); WBC,URINE 0-4 /HPF (0-4)
[2024-12-28 04:07] LABS: URINE AMPHETAMINE SCREEN POSITIVE (Neg); URINE BARBITUATE SCREEN NEGATIVE (Neg); URINE BENZODIAZEPINES SCREEN POSITIVE (Neg); URINE CANNABINOID SCREEN NEGATIVE (Neg); URINE COCAINE SCREEN NEGATIVE (Neg); URINE METHADONE SCREEN NEGATIVE (Neg); URINE OPIATE SCREEN NEGATIVE (Neg); URINE PHENCYCLIDINE SCREEN NEGATIVE (Neg)
[2024-12-28] MEDS: normal saline 1000ML IV soln IVB ONE (04:29)
--- NOTE | 2024-12-28 04:30 | RADIOLOGY REPORT ---
CHEST RADIOGRAPH Indication: cough wbc elevated Technique: Single frontal view of the chest was obtained COMPARISON: DI CHEST,SINGLE VIEW on DOS: 06/27/24, CHEST,SINGLE VIEW on DOS: 10/28/21 FINDINGS: Lines and Tubes: None Lungs: Clear Pleura: No effusion. No pneumothorax. Cardiomediastinal contours: Unremarkable Bones: Unremarkable IMPRESSION: 1. No acute disease.
[2024-12-28] MEDS: CefTRIAXone 2gm/D5W 50ml BAG 50 ML IV ONE (09:17)
[2024-12-28 09:47] LABS: BASOPHILS # (AUTO) 0.1 X10'3 (0-0.2); BASOPHILS % (AUTO) 0.9 % (0-1); EOSINOPHILS # (AUTO) 0.1 X10'3 (0-0.9); EOSINOPHILS % (AUTO) 0.5 % (0-6); HEMATOCRIT 39.1 % (42.0-52.0); HEMOGLOBIN 13.5 g/dl (14.0-17.9); LYMPHOCYTES # (AUTO) 2.7 X10'3 (1.1-4.8); LYMPHOCYTES % (AUTO) 21.1 % (21-51); MEAN CORPUSCULAR HEMOGLOBIN 34.5 PG (27.0-31.0); MEAN CORPUSCULAR HGB CONC 34.4 g/dL (33.0-36.5); MEAN CORPUSCULAR VOLUME 100.2 FL (78-98); MEAN PLATELET VOLUME 7.5 FL (7.4-10.4); MONOCYTES # (AUTO) 1.4 X10'3 (0-0.9); MONOCYTES % (AUTO) 10.9 % (2-12); NEUTROPHILS # (AUTO) 8.6 X10'3 (1.8-7.7); NEUTROPHILS % (AUTO) 66.6 % (42-75); PLATELET COUNT 264 X10'3 (140-440); RED BLOOD COUNT 3.91 X10'6 (4.70-6.10); WHITE BLOOD COUNT 12.9 X10'3 (4.5-11.0)
[2024-12-28 14:41] VITALS: BP 105/72; PULSE 100; RESP 16; O2SAT 98
[2024-12-29] MEDS ORDERED: aripiprazole 5mg tablet PO SCH (08:00)
[2024-12-29] MEDS ORDERED: sertraline 25mg tablet PO SCH (08:00)
== END 2024-12-28 14:49 | disposition still patient (30) ==
LOC: ER 00:17
DX: F29 Unspecified psychosis not due to a substance or known physiological condition (principal); D72.829 Elevated white blood cell count, unspecified; F31.9 Bipolar disorder, unspecified; F15.90 Other stimulant use, unspecified, uncomplicated; Z20.822 Contact with and (suspected) exposure to COVID-19
CPT/HCPCS: 36415; 71045; 80048; 80305; 80320; 81001; 83605; 84145; 84443; 85025; 87040; 87811; 93005; 96361; 96365; 96372; 96375; 99285; J0696; J1200; J1630; J3360; J7030

== ENCOUNTER 2025-01-28 16:26 | Emergency (ER) | payer MEDICAID ==
[~2025-01-28] VITALS: Ht 177.8 cm; Wt 75.0 kg
[~2025-01-28 16:26] MED LIST changes: +ARIP5TAB53 PO; -DIPH25TA62 PO; -NO HOME MEDS; +SERT-432 PO
[2025-01-28 16:30] VITALS: TEMP 97
--- NOTE | 2025-01-28 16:38 | ELECTROCARDIOGRAPH REPORT ---
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 James De La Cruz Measurements Intervals [place] Rate: 140 P: 64 NC: 129 QRS: 35 QRSD: 98 T: 0 QT: 287 QTc: 438 Interpretive Statements Sinus tachycardia Multiform ventricular premature complexes Consider right atrial enlargement Posterior infarct, old Minimal ST depression, lateral leads Artifact in lead(s) II,aVF,V1,V2,V4,V5,V6 Electronically Signed On 01-30-2025 6:35:[address] James De La Cruz Please click the below link to view image of tracing.
--- NOTE | 2025-01-28 17:53 | Physician Documentation ---
History of Present Illness General Chief Complaint: Anxiety Stated Complaint: ANXIETY Time Seen by MD: 16:38 Primary Medical Doctor: NONE History of Present Illness Initial Comments Unsheltered male brought in for anxiousness associated methamphetamine use as reported by the police prior to be taken to longterm. Reports that occasionally he has he has anxiety attacks and known trigger. Noted to be tachycardic. Otherwise able to answer questions but in obvious crisis. No obvious trauma. Medication Reconciliation Allergies: Coded Allergies: No Known Allergies (Unverified , 12/28/24) Scheduled Aripiprazole (Aripiprazole), 1 TAB PO DAILY, (Reported) Sertraline HCl (Sertraline HCl), 1 TAB PO DAILY, (Reported) Past Medical History Past Medical History: Peptic Ulcer Disease, Bipolar, Depression Past Surgical History: no surgical history Smoking: Cigarettes Alcohol Use: Occasionally Drug Use: methamphetamine Lives with: Alone Lives In: Homeless Occupation: unemployed Physical Exam Physical Exam Vital Signs: RN Vital Signs have been reviewed: Yes, Temperature: 97.0, Source: Temporal, Heart Rate: 140, Respiratory Rate: 22, BP: 141/91, Pulse Oximetry: 96, Weight: 75.000 Oxygen Flow Rate: 0 General Appearance: alert, moderate distress, other (This is a) Head: normal inspection Face: normal inspection Pupils/EOM/Fundus: PERRLA Neck: non-tender Respiratory: no respiratory distress, other (Hyperventilating) Cardiovascular: tachycardia Neurologic: oriented x4 Motor / Sensory: no motor deficit, no sensory deficit Psychiatric: anxiety Skin: normal color, warm/dry, other Progress Results/Orders Results/Orders Completed Orders - AMANDA CHENG Lorazepam Inj (Ativan Inj) (01/28/25 17:50) Medications Received in ER Medications (Trade) Dose Ordered Sig/Todd Route PRN Reason Start Time Stop Time Status Last Admin Dose Admin (Ativan inj) 2 mg ONCE ONCE IV 01/28/25 17:50 01/28/25 17:51 DC 01/28/25 18:07 2 MG Vital Signs 01/28/25 16:30 Temp 97.0 Pulse 140 Resp 22 B/P (MAP) 141/91 Pulse Ox 96 O2 Flow Rate 0 Medical Decision Making Differential Diagnosis Examination history consistent with acute anxiety likely triggered by drug use. Patient received IV hydration 1 L normal saline for tachycardia began feeling little better further associated with Ativan 2 mg. Safely discharged in the emergency department all resources addressed. Departure Disposition: HOME / SELF CARE / HOMELESS Impression: Primary Impression: Anxiety Condition: Improved Discharge Instructions: Panic Attack Additional Instructions: He has been follow up with the primary care physician for further evaluation and management of breakthrough anxiety. Referrals: NO PRIMARY CARE PROVIDER (PCP) Education Educated: Patient Educated regarding: diagnosis Signature Scribe Signature: . Attestation: . AMANDA CHENG PAC Jan 28, 2025 17:52
[2025-01-28] MEDS: LORazepam 2 mg/ml vial IV ONE (18:07)
[2025-01-28 19:25] VITALS: BP 124/89; PULSE 100; RESP 14; O2SAT 96
== END 2025-01-28 19:27 | disposition home or self-care (01) ==
LOC: ER 16:27
DX: F41.9 Anxiety disorder, unspecified (principal); F31.9 Bipolar disorder, unspecified; F12.90 Cannabis use, unspecified, uncomplicated; F17.210 Nicotine dependence, cigarettes, uncomplicated; Z59.00 Homelessness unspecified; Z79.899 Other long term (current) drug therapy; Z56.0 Unemployment, unspecified; Z72.89 Other problems related to lifestyle; Z60.2 Problems related to living alone
CPT/HCPCS: 93005; 96374; 99283; J2060; J7030

== ENCOUNTER 2025-01-29 06:23 | Emergency (ER) | payer MEDICAID ==
[~2025-01-29] VITALS: Ht 165.1 cm; Wt 75.0 kg
[2025-01-29] MEDS: ziprasidone IM 20mg inj **IM only IM ONE (07:20)
--- NOTE | 2025-01-29 07:34 | Physician Documentation ---
History of Present Illness ~ Chief Complaint: Mental Health Eval Stated Complaint: MENTAL HEALTH EVAL Time Seen by MD: 07:11 Primary Medical Doctor: no PCP Mode of Arrival: EMS HPI Patient was brought to the hospital by EMS for anxiety. He was was in the bathroom at [facility] for an hour and a half and he was acting paranoid. No reports of self-harm or any injury. It is patient states that he is not suicidal or homicidal is just having anxiety. He also has a history of methamphetamine abuse. Medication Reconciliation Allergies: Coded Allergies: No Known Allergies (Unverified , 12/28/24) Scheduled Aripiprazole (Aripiprazole), 1 TAB PO DAILY, (Reported) Sertraline HCl (Sertraline HCl), 1 TAB PO DAILY, (Reported) Past Medical History Past Medical History: Peptic Ulcer Disease, Bipolar, Depression Past Surgical History: no surgical history Alcohol Use: Occasionally Drug Use: methamphetamine Lives with: Alone Lives In: Homeless Occupation: unemployed Physical Exam Vital Signs: Temperature: 98.3, Source: Oral, Heart Rate: 111, Respiratory Ra te: 19, BP: 142/89, Pulse Oximetry: 99, Weight: 75.000 Oxygen Flow Rate: 0 Physical Exam General: Awake and Alert, no acute distress. HEENT: Conjunctiva pink, Sclera clear, Neck: Supple Resp: Unlabored. Heart: Good perfusion Abdomen: Nondistended Extremities: No cyanosis,clubbing or edema. Skin: Warm and Dry. Neuro: no focal deficits Psych: He is anxious he is not suicidal or homicidal. Progress Results/Orders Results/Orders Completed Orders - MELA TORRES MD Ziprasidone Im Inj. (Geodon ImIm Onl (01/29/25 07:15) Medications Received in ER Medications (Trade) Dose Ordered Sig/Todd Route PRN Reason Start Time Stop Time Status Last Admin Dose Admin (Geodon IMIM ONLY) 10 mg ONCE ONCE IM 01/29/25 07:15 01/29/25 07:16 DC 01/29/25 07:20 10 MG Vital Signs 01/29/25 01/29/25 01/29/25 06:25 06:31 06:32 Temp 98.3 98.3 Pulse 111 111 Resp 19 19 19 B/P (MAP) 142/89 142/89 (106) Pulse Ox 98 99 O2 Flow Rate 0 Medical Decision Making Findings Patient has a history of psychiatric problems. He also has methamphetamine use and today he was paranoid and anxious. He is not suicidal or homicidal. He was given IM Geodon after brief observation was discharged. Departure Disposition: HOME / SELF CARE / HOMELESS Impression: Primary Impression: Methamphetamine abuse Additional Impressions: Anxiety Paranoid Condition: Stable Discharge Instructions: Psychosis Referrals: NO PRIMARY CARE PROVIDER (PCP) Education Educated: Patient Educated regarding: diagnosis, treatment, prognosis, need for follow up Signature Scribe Signature: no scribe Attestation: no scribe MELA TORRES MD Jan 29, 2025 07:34
[2025-01-29 08:32] VITALS: BP 132/88; PULSE 100; RESP 17; TEMP 98.3; O2SAT 99
== END 2025-01-29 08:35 | disposition home or self-care (01) ==
LOC: ER 06:24
DX: F15.10 Other stimulant abuse, uncomplicated (principal); F41.9 Anxiety disorder, unspecified; F60.0 Paranoid personality disorder; F31.9 Bipolar disorder, unspecified; Z56.0 Unemployment, unspecified; Z59.00 Homelessness unspecified; Z72.89 Other problems related to lifestyle; Z60.2 Problems related to living alone
CPT/HCPCS: 96372; 99283; J3486

== ENCOUNTER 2025-01-29 18:58 | Emergency (ER) | payer MEDICAID ==
[~2025-01-29] VITALS: Ht 165.1 cm; Wt 71.0 kg
[2025-01-29 19:51] LABS: BASOPHILS # (AUTO) 0.1 X10'3 (0-0.2); BASOPHILS % (AUTO) 0.9 % (0-1); EOSINOPHILS # (AUTO) 0.1 X10'3 (0-0.9); HEMOGLOBIN 14.9 g/dl (14.0-17.9); LYMPHOCYTES # (AUTO) 3.3 X10'3 (1.1-4.8); LYMPHOCYTES % (AUTO) 30.5 % (21-51); MEAN CORPUSCULAR HEMOGLOBIN 34.8 PG (27.0-31.0); MEAN CORPUSCULAR HGB CONC 34.7 g/dL (33.0-36.5); MEAN CORPUSCULAR VOLUME 100.5 FL (78-98); MEAN PLATELET VOLUME 7.8 FL (7.4-10.4); MONOCYTES # (AUTO) 1.2 X10'3 (0-0.9); NEUTROPHILS # (AUTO) 6.1 X10'3 (1.8-7.7); NEUTROPHILS % (AUTO) 56.6 % (42-75); PLATELET COUNT 293 X10'3 (140-440); RED BLOOD COUNT 4.28 X10'6 (4.70-6.10); RED CELL DISTRIBUTION WIDTH 12.8 % (11.5-14.5); WHITE BLOOD COUNT 10.9 X10'3 (4.5-11.0)
[2025-01-29 20:01] LABS: BILIRUBIN,URINE NEGATIVE (Neg); CLARITY,URINE CLEAR (Clear); COLOR,URINE YELLOW (Yellow); GLUCOSE, URINE NEGATIVE (Neg); KETONES,URINE TRACE mg/dl (Neg); LEUKOCYTE ESTERASE ,URINE NEGATIVE (Neg); NITRITES, URINE NEGATIVE (Neg); OCCULT BLOOD,URINE NEGATIVE (Neg); PH,URINE 5.5 (4.8-8.0); PROTEIN,URINE NEGATIVE (Neg); UROBILINOGEN,URINE 0.2 E.U/dL (0.2-1.0)
[2025-01-29 20:02] LABS: UA COLLECTION TYPE NON-SPECIFIED
[2025-01-29 20:04] LABS: ALBUMIN 4.1 G/DL (3.4-5.0); ANION GAP 12 (8-16); BLOOD UREA NITROGEN 18 MG/DL (7-18); BUN/CREATININE RATIO 13.5 (10.0-20.0); CALCIUM 9.2 MG/DL (8.5-10.1); CHLORIDE 104 MMOL/L (99-107); CREATININE 1.33 MG/DL (0.60-1.10); GLUCOSE 91 MG/DL (70-104); POTASSIUM 3.7 MMOL/L (3.5-5.1); SODIUM 144 MMOL/L (135-145); THYROID STIMULATING HORMONE 2.66 ulU/ml (0.34-4.50); TOTAL CARBON DIOXIDE 28.3 MMOL/L (24-32); eCRCL 63 ML/MIN; eGFR 59 ML/MIN
[2025-01-29 20:09] LABS: ETHANOL < 10 MG/DL (<10)
[2025-01-29 20:20] LABS: URINE AMPHETAMINE SCREEN POSITIVE (Neg); URINE BARBITUATE SCREEN NEGATIVE (Neg); URINE BENZODIAZEPINES SCREEN NEGATIVE (Neg); URINE CANNABINOID SCREEN NEGATIVE (Neg); URINE COCAINE SCREEN NEGATIVE (Neg); URINE METHADONE SCREEN NEGATIVE (Neg); URINE OPIATE SCREEN NEGATIVE (Neg); URINE PHENCYCLIDINE SCREEN NEGATIVE (Neg)
--- NOTE | 2025-01-29 20:50 | Physician Documentation ---
History of Present Illness ~ Chief Complaint: Mental Health Eval Stated Complaint: MH EVAL Time Seen by MD: 19:45 OK to notify your PCP?: Yes Primary Medical Doctor: no PCP Source: patient Mode of Arrival: Ambulatory HPI This 44-year-old male presents to the emergency department for mental health evaluation due to my mind is shutting down patient reports hearing voices though reports no command hallucinations or suicidal ideation or homicidal ideation. Patient is rambling with tangential speech and is unable to elaborate on his mental health history reports taking a medication to treat the voices, patient reports the voices have been worse lately telling him bad things. Jeferson alan reports recent methamphetamine use, with last use two days ago. Patient reports no physical symptoms or acute physical concerns. Medication Reconciliation Allergies: Coded Allergies: No Known Allergies (Unverified , 01/29/25) Scheduled Aripiprazole (Aripiprazole), 1 TAB PO DAILY, (Reported) Sertraline HCl (Sertraline HCl), 1 TAB PO DAILY, (Reported) Past Medical History Past Medical History: Peptic Ulcer Disease, Bipolar, Depression Past Surgical History: no surgical history Alcohol Use: Occasionally Drug Use: methamphetamine Lives with: Alone Lives In: Homeless Occupation: unemployed Review of Systems ROS Mental health evaluation as stated above in the HPI, otherwise all systems are reviewed and negative. Physical Exam Vital Signs: RN Vital Signs have been reviewed: Yes, Temperature: 99.1, Heart Rate: 108, Respiratory Rate: 16, BP: 138/101, Pulse Oximetry: 98, Weight: 70.950 Oxygen Flow Rate: 0 Physical Exam VITALS: Reviewed and as above. GENERAL: Alert, nontoxic appearing, no apparent distress. Disheveled HEENT: PERRLA, EOMI RESPIRATORY: No increased work of breathing, no respiratory distress, speaking in full clear sentences, clear lung sounds in all purvis CV: Regular rate and rhythm no murmur BACK: No CVA tenderness, no midline tenderness GI: Nondistended, soft, nontender, no rebound, no guarding, bowel sounds present MUSCULOSKELETAL: No deformities PSYCH: Bizarre mood and affect, no agitation, stating no HI or SI Progress Progress Note 1130: Patient was evaluated by mental health tech and he had stated that he would like to return to his residence. Results/Orders Reviewed/noted all lab results: Yes Results/Orders Vital Signs 601/29/25 01/30/25 01/30/25 19:05 19:14 01:27 09:30 Temp 99.1 98.6 97.7 Pulse 108 80 73 Resp 16 16 20 18 B/P (MAP) 138/101 136/80 (98) 107/72 (84) Pulse Ox 98 95 97 O2 Flow Rate 0 0 01/30/25 09:31 Resp 18 B/P (MAP) Laboratory Tests Test 01/29/25 19:36 01/29/25 19:45 01/29/25 19:51 White Blood Count 10.9 Red Blood Count 4.28 L Hemoglobin 14.9 Hematocrit 43.0 Mean Corpuscular Volume 100.5 H Mean Corpuscular Hemoglobin 34.8 H Mean Corpuscular Hemoglobin Concent 34.7 Red Cell Distribution Width 12.8 Platelet Count 293 Mean Platelet Volume 7.8 Neutrophils (%) (Auto) 56.6 Lymphocytes (%) (Auto) 30.5 Monocytes (%) (Auto) 11.0 Eosinophils (%) (Auto) 1.0 Basophils (%) (Auto) 0.9 Neutrophils # (Auto) 6.1 Lymphocytes # (Auto) 3.3 Monocytes # (Auto) 1.2 H Eosinophils # (Auto) 0.1 Basophils # (Auto) 0.1 CBC Comment Sodium Level 144 Potassium Level 3.7 Chloride Level 104 Carbon Dioxide Level 28.3 Anion Gap 12 Blood Urea Nitrogen 18 Creatinine 1.33 H Estimated GFR/1.73 m2 59 BUN/Creatinine Ratio 13.5 Glucose Level 91 Calcium Level 9.2 Albumin 4.1 Thyroid Stimulating Hormone (TSH) 2.66 Chemistry Comments Ethyl Alcohol Level < 10 Urine Specimen Description Non-specified Urine Color Yellow Urine Clarity Clear Urine pH 5.5 Urine Specific [place] <=1.005 Urine Protein Negative Urine Glucose (UA) Negative Urine Ketones Trace H Urine Occult Blood Negative Urine Nitrite Negative Urine Bilirubin Negative Urine Urobilinogen 0.2 Urine Leukocyte Esterase Negative Volume Urine Centrifuged 10 ml Urine Comment Urine Opiates Screen Negative Urine Methadone Screen Negative Urine Fentanyl Screen Negative Urine Barbiturates Screen Negative Urine Phencyclidine Screen Negative Urine Amphetamines Screen Positive Urine Benzodiazepines Screen Negative Urine Cocaine Screen Negative Urine Cannabinoids Screen Negative Drug Screen Comment SARS-CoV-2 Antigen (Rapid) Negative Re-Evaluation Re-Evaluation : Progress Patient was medically cleared by Mental Health and is also medically cleared to be seen by mental health. Medical Decision Making Findings This 44-year-old male presents back to the emergency department today after being treated discharge for psychosis, patient does have history of methamphetamine abuse who has been seen emergency department multiple times in the last two days. On my exam patient appears to be having delusional and disorganized thought process, while he does not report suicidal ideation, homicidal ideation, or command hallucinations patient is reporting auditory hallucinations and can not verbalize plan to care for himself if discharged. Patient this otherwise well reporting no physical symptoms, physical exam was benign in labs did not demonstrate significant evidence of metabolic or electrolyte derangement. There appears to be no emergent medical condition present. Transfer orders for : At this time there is no evidence of an emergent medical condition that would preclude (admission/transfer) to a psychiatric unit via protocol for further psychiatric, as well as medical evaluation and treatment. At this time I have no reason to believe that transfer via protocol would have serious medical compromise in the patient's health. Differential Dx:Considerations: Include: Alcohol abuse, Anxiety, Bipolar disorder, Conversion disorder, Depression, Encephaloathy, Homicidal, Panic disorder, Personality disorder, Schizophrenia, Substance abuse, Suicidal Departure Time of Disposition: 11:31 Disposition: 01 HOME / SELF CARE / HOMELESS Impression: Primary Impression: Mental disorder Condition: Stable Discharge Instructions: Medical Screening Exam, Psychosis Additional Instructions: Transfer orders for : At this time there is no evidence of an emergent medical condition that would preclude (admission/transfer) to a psychiatric unit via protocol for further psychiatric, as well as medical evaluation and treatment. At this time I have no reason to believe that transfer via protocol would have serious medical compromise in the patient's health. Please follow up with your primary care provider in the next few days. Please return to the emergency department for any new or worsening concerning symptoms. Referrals: NO PRIMARY CARE PROVIDER (PCP) Education Educated: Patient Educated regarding: diagnosis, treatment, prognosis, need for follow up Signature Scribe Signature: No scribe Scribed for Ernie Brooke by Yvonne Hutson . 01/30/25 11:31 (progress) Attestation: The note accurately reflects work and decisions made by me.JONELLE Coffman 01/30/25 01:21 The note accurately reflects work and decisions made by me.James De La Cruz MD 02/02/25 23:49 ERNIE BROOKEP Jan 29, 2025 20:50 YVONNE SMITH Jan 30, 2025 11:31 JAMES DE LA CRUZ MD Feb 02, 2025 23:49
[2025-01-30] MEDS: hydrOXYzine 25 MG tablet PO ONE (00:57)
[2025-01-30] MEDS: traZODone 50mg tablet PO ONE (02:03)
[2025-01-30] MEDS: nicotine 14mg patch - 24hr TD ONE (02:03)
[2025-01-30 09:30] VITALS: BP 107/72; PULSE 73; TEMP 97.7; O2SAT 97
[2025-01-30 09:31] VITALS: RESP 18
== END 2025-01-30 11:43 | disposition home or self-care (01) ==
LOC: ER 18:59
DX: F99 Mental disorder, not otherwise specified (principal); F31.9 Bipolar disorder, unspecified; F15.90 Other stimulant use, unspecified, uncomplicated; Z20.822 Contact with and (suspected) exposure to COVID-19
CPT/HCPCS: 36415; 80048; 80305; 80320; 81003; 84443; 85025; 87811; 99284; Q0177

== ENCOUNTER 2025-03-20 06:42 | Emergency (ER) | payer MEDICAID ==
[~2025-03-20] VITALS: Ht 165.1 cm; Wt 75.0 kg
--- NOTE | 2025-03-20 06:51 | ELECTROCARDIOGRAPH REPORT ---
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 Dede Worthington Measurements Intervals Sandy Rate: 73 P: 33 WV: 139 QRS: 44 QRSD: 89 T: 18 QT: 383 QTc: 422 Interpretive Statements Sinus rhythm Electronically Signed On 03-20-2025 18:20:[address] Dede Worthington Please click the below link to view image of tracing.
--- NOTE | 2025-03-20 07:11 | Physician Documentation ---
History of Present Illness ~ Chief Complaint: Chest Pain Stated Complaint: CHEST PAIN,SEIZURE Time Seen by MD: 07:02 Primary Medical Doctor: no PCP HPI Patient presents to the emergency room for evaluation of chest pain. He is a poor historian and describes some vague chest pain and arm pain that he states is his arteries. He also states that he thinks he has a seizure because his right hand was shaking. She has not says something about syncope however upon talking with him more it seems that he has suffered from dizziness and not syncope. No current dizziness. Medication Reconciliation Allergies: Coded Allergies: No Known Allergies (Unverified , 01/29/25) Scheduled Aripiprazole (Aripiprazole), 1 TAB PO DAILY, (Reported) Sertraline HCl (Sertraline HCl), 1 TAB PO DAILY, (Reported) Past Medical History Past Medical History: Peptic Ulcer Disease, Bipolar, Depression Past Surgical History: no surgical history Alcohol Use: Occasionally Drug Use: methamphetamine Lives with: Alone Lives In: Homeless Occupation: unemployed Review of Systems ROS All review of systems negative except as per HPI Physical Exam Vital Signs: Temperature: 97.9, Source: Temporal, Heart Rate: 79, Respiratory Rate: 18, BP: 128/93, Pulse Oximetry: 96, Weight: 75.000 Oxygen Flow Rate: 0 Physical Exam General: Patient is awake, alert, oriented x4 in no acute distress Head: Normocephalic and atraumatic. Eyes: Conjunctival normal. EOMI. PERRL. ENT: Mucous membranes moist. Neck: Supple, trachea is midline. Chest: Clear to auscultation bilaterally without rales, rhonchi, or wheezes. There is no accessory muscle use or retractions. Cardiac: RRR without murmurs, gallops, or rubs. Extremities: Normal strength. Normal range of motion. No deformities or edema. No calf tenderness to palpation Progress Results/Orders Results/Orders Vital Signs 03/20/25 03/20/25 03/20/25 06:44 07:07 07:24 Temp 97.9 97.9 Pulse 79 76 Resp 18 17 17 B/P (MAP) 128/93 129/82 (98) Pulse Ox 96 95 O2 Flow Rate 0 0 Laboratory Tests Test 03/20/25 06:54 White Blood Count 8.3 Red Blood Count 4.67 L Hemoglobin 16.0 Hematocrit 46.5 Mean Corpuscular Volume 99.4 H Mean Corpuscular Hemoglobin 34.2 H Mean Corpuscular Hemoglobin Concent 34.4 Red Cell Distribution Width 12.4 Platelet Count 308 Mean Platelet Volume 8.2 Neutrophils (%) (Auto) 58.2 Lymphocytes (%) (Auto) 31.0 Monocytes (%) (Auto) 7.8 Eosinophils (%) (Auto) 1.7 Basophils (%) (Auto) 1.3 H Neutrophils # (Auto) 4.8 Lymphocytes # (Auto) 2.6 Monocytes # (Auto) 0.6 Eosinophils # (Auto) 0.1 Basophils # (Auto) 0.1 CBC Comment Sodium Level 135 Potassium Level 4.2 Chloride Level 100 Carbon Dioxide Level 23.8 L Anion Gap 11 Blood Urea Nitrogen 24 H Creatinine 0.96 Estimated GFR/1.73 m2 86 BUN/Creatinine Ratio 25.0 H Glucose Level 102 Calcium Level 9.0 Troponin I High Sensitivity 9 Pro-B-Type Natriuretic Peptide 72 Albumin 4.3 Chemistry Comments EKG/XRAY/CT/US/VASC/MRI EKG : Additional Comment EKG interpreted by myself shows time of 0648, rate 73, sinus rhythm, normal axis, no ST changes Chest X-Ray : Additional Comments Chest x-ray interpreted by myself shows no effusions, no infiltrates, normal cardiac silhouette. Increased interstitial markings Medical Decision Making Findings Patient presents to the emergency room with chief complaint of chest pain. Differentials include but are not limited to ACS, musculoskeletal pain, pulmonary embolism, pneumothorax therefore emergent labs and imaging indicated which were reassuring. Patient has a low heart score of 0 in his considered low cardiovascular risk. Given no hypoxia tachycardia or calf tenderness he had not feel he requires investigation into possible pulmonary embolism and I do not suspect acute aortic pathology given patient's age. Regarding patient's report of seizure and near syncope, does not sound like a seizure and I do not feel he requires neuro imaging. No actual syncope and he is a poor historian I do not know what he is referring to but I do not believe he is suffering from cardiogenic syncope. Departure Disposition: HOME / SELF CARE / HOMELESS Impression: Primary Impression: Chest pain Condition: Stable Discharge Instructions: Nonspecific Chest Pain, Adult Referrals: NO PRIMARY CARE PROVIDER (PCP) Signature Scribe Signature: No scribe Attestation: The note accurately reflects work and decisions made by me.Ajay Mann MD 03/20/25 08:25 AJAY MANN MD Mar 20, 2025 07:11
[2025-03-20 07:13] LABS: MEAN PLATELET VOLUME 8.2 FL (7.4-10.4); RED CELL DISTRIBUTION WIDTH 12.4 % (11.5-14.5)
[2025-03-20 07:24] VITALS: TEMP 97.9
--- NOTE | 2025-03-20 07:30 | RADIOLOGY REPORT ---
EXAM: XR Chest, 1 View CLINICAL INDICATION: Pain TECHNIQUE: Frontal view of the chest. COMPARISON: No relevant prior studies available. FINDINGS: LUNGS AND PLEURAL SPACES: Unremarkable. No consolidation. No pneumothorax. HEART: Unremarkable. No cardiomegaly. MEDIASTINUM: Unremarkable. Normal mediastinal contour. BONES/JOINTS: Unremarkable. No acute fracture. IMPRESSION: No acute cardiopulmonary process.
[2025-03-20 07:56] LABS: CREATININE 0.96 MG/DL (0.60-1.10); PRO BRAIN NATRIURETIC PEPTIDE 72 PG/ML (0-125); TOTAL CARBON DIOXIDE 23.8 MMOL/L (24-32); eCRCL 87 ML/MIN; eGFR 86 ML/MIN
[2025-03-20 09:06] VITALS: BP 124/83; PULSE 75; RESP 17; O2SAT 96
== END 2025-03-20 09:08 | disposition home or self-care (01) ==
LOC: ER 06:42
DX: R07.9 Chest pain, unspecified (principal); R25.1 Tremor, unspecified; R56.9 Unspecified convulsions; R06.02 Shortness of breath; F15.90 Other stimulant use, unspecified, uncomplicated; F31.9 Bipolar disorder, unspecified; Z87.11 Personal history of peptic ulcer disease
CPT/HCPCS: 36415; 71045; 80048; 83880; 84484; 85025; 93005; 99285

== ENCOUNTER 2025-04-12 14:08 | Emergency (ER) | payer MEDICAID ==
[~2025-04-12] VITALS: Ht 165.1 cm; Wt 72.0 kg
[2025-04-12] MEDS: OLANZapine 5mg rapidly disint. tablet PO ONE (15:20)
--- NOTE | 2025-04-12 19:45 | Physician Documentation ---
History of Present Illness ~ Chief Complaint: Mental Health Eval Stated Complaint: MH EVAL Time Seen by MD: 18:05 Primary Medical Doctor: no PCP Mode of Arrival: EMS HPI 44 patient presented from a [facility] with vague complaints. "They stole my history..." Also reports feeling threatened. Difficult historian. Medication Reconciliation Allergies: Coded Allergies: No Known Allergies (Unverified , 01/29/25) Scheduled Aripiprazole (Aripiprazole), 1 TAB PO DAILY, (Reported) Sertraline HCl (Sertraline HCl), 1 TAB PO DAILY, (Reported) Past Medical History Past Medical History: Peptic Ulcer Disease, Bipolar, Depression Past Surgical History: no surgical history Alcohol Use: Occasionally Drug Use: methamphetamine Lives with: Alone Lives In: Homeless Occupation: unemployed Review of Systems ROS Unable to assess because poor historian. Physical Exam Vital Signs: RN Vital Signs have been reviewed: Yes, Temperature: 98.3, Source: Temporal, Heart Rate: 80, Respiratory Rate: 16, BP: 122/80, Pulse Oximetry: 97, Weight: 72.000 Oxygen Flow Rate: 0 Physical Exam HEENT: PERRL, moist oral mucosa, EOMI Pulmonary: No respiratory distress MSK: no deformity Skin: w/d/i, no rash Neuro: alert, nonfocal Psych: paucity of speech Progress Results/Orders Results/Orders Orders - TONJA ROWE MD Cbc/Diff (04/12/25 19:16) CMP (04/12/25 19:16) Urinalysis, Cult If Indicated (04/12/25 19:16) 1799.11 (04/12/25 19:16) Medications Received in ER Medications (Trade) Dose Ordered Sig/Todd Route PRN Reason Start Time Stop Time Status Last Admin Dose Admin (ZyPREXA zydis tablet) 5 mg ONCE ONCE PO 04/12/25 15:15 04/12/25 15:16 DC 04/12/25 15:20 5 MG Vital Signs 04/12/25 04/12/25 04/12/25 04/12/25 14:10 14:51 14:51 18:45 Temp 98.0 98.3 Pulse 80 78 80 Resp 16 15 15 14 B/P (MAP) 132/71 124/84 (97) 122/80 (94) Pulse Ox 97 96 97 O2 Flow Rate 0 0 0 04/12/25 19:17 Resp 16 B/P (MAP) Medical Decision Making Findings 44 year old male with possible acute psychosis. Medically clear for [facility] and will sign over to oncoming ER physician for disposition. Differential Dx:Considerations: Include: Alcohol abuse, Bipolar disorder, Conversion disorder, Encephaloathy, Personality disorder, Schizophrenia, Substance abuse, Suicidal Departure Disposition: 30 STILL A PATIENT Impression: Primary Impression: Psychosis Discharge Instructions: Medical Screening Exam Referrals: NO PRIMARY CARE PROVIDER (PCP) Signature Scribe Signature: . Attestation: . TONJA ROWE MD Apr 12, 2025 19:45
[2025-04-12 19:58] LABS: MEAN PLATELET VOLUME 8.1 FL (7.4-10.4); RED CELL DISTRIBUTION WIDTH 12.8 % (11.5-14.5)
[2025-04-12 20:09] LABS: CREATININE 1.00 MG/DL (0.60-1.10); TOTAL CARBON DIOXIDE 28.2 MMOL/L (24-32); eCRCL 84 ML/MIN; eGFR 82 ML/MIN
[2025-04-13 05:17] VITALS: BP 124/76; PULSE 78; RESP 16; TEMP 98.1; O2SAT 98
[2025-04-13 07:48] LABS: LEUKOCYTE ESTERASE ,URINE NEGATIVE (Neg); NITRITES, URINE NEGATIVE (Neg); OCCULT BLOOD,URINE NEGATIVE (Neg)
[2025-04-13 07:49] LABS: UA COLLECTION TYPE CLN CATCH MIDSTREAM
[2025-04-13 10:08] LABS: URINE AMPHETAMINE SCREEN NEGATIVE (Neg); URINE BARBITUATE SCREEN NEGATIVE (Neg); URINE BENZODIAZEPINES SCREEN NEGATIVE (Neg); URINE CANNABINOID SCREEN POSITIVE (Neg); URINE COCAINE SCREEN NEGATIVE (Neg); URINE METHADONE SCREEN NEGATIVE (Neg); URINE OPIATE SCREEN NEGATIVE (Neg); URINE PHENCYCLIDINE SCREEN NEGATIVE (Neg)
[2025-04-13] MEDS ORDERED: NO HOME MEDS (10:45)
== END 2025-04-13 11:00 | disposition home or self-care (01) ==
LOC: ER 14:08
DX: F29 Unspecified psychosis not due to a substance or known physiological condition (principal); F31.9 Bipolar disorder, unspecified; F15.90 Other stimulant use, unspecified, uncomplicated; Z79.899 Other long term (current) drug therapy
CPT/HCPCS: 36415; 80053; 80305; 81003; 85025; 99284

== ENCOUNTER 2025-04-18 18:01 | Emergency (ER) | payer MEDICAID ==
[~2025-04-18] VITALS: Ht 165.1 cm; Wt 75.0 kg
[~2025-04-18 18:01] MED LIST changes: -ARIP5TAB53 PO; +NO HOME MEDS; -SERT-432 PO
[2025-04-18 18:10] VITALS: TEMP 97.9
--- NOTE | 2025-04-18 18:27 | Physician Documentation ---
History of Present Illness ~ Chief Complaint: Mental Health Eval Stated Complaint: MH Time Seen by MD: 18:20 Primary Medical Doctor: no PCP Source: patient Mode of Arrival: Ambulatory Exam Limitations: no limitations HPI 44-year-old homeless male ambulatory in triage claiming to be suicidal and he does not want to state the [place]. Patient states that he would find a bullet in bite the bullet or put it in a PVC pipe. Patient states that he sees things at times. Patient states that he has family and some resources but is staying at the [place]. Patient states that he is sober. No other acute concerns Medication Reconciliation Allergies: Coded Allergies: No Known Allergies (Unverified , 01/29/25) Miscellaneous Medications Home Med List (No Home Medications), (Reported) Discontinued Medications Aripiprazole (Aripiprazole), 1 TAB PO DAILY, (Reported) Discontinued Reason: patient no longer taking Sertraline HCl (Sertraline HCl), 1 TAB PO DAILY, (Reported) Discontinued Reason: patient no longer taking Past Medical History Past Medical History: Peptic Ulcer Disease, Bipolar, Depression Past Surgical History: no surgical history Alcohol Use: Occasionally Drug Use: methamphetamine Lives with: Alone Lives In: Homeless Occupation: unemployed Review of Systems All Other Systems at this time: Reviewed and Negative Physical Exam Vital Signs: Temperature: 97.9, Source: Temporal, Heart Rate: 86, Respiratory Rate: 15, BP: 131/81, Pulse Oximetry: 97, Weight: 75.000 General Appearance: alert, WD/WN, no apparent distress Respiratory: lungs clear, normal breath sounds, no respiratory distress Chest: no accessory muscle use, chest non-tender Cardiovascular: normal peripheral pulses, regular rate, rhythm, no edema Appearance/Memory/Insight: disheveled Behavior/Eye contact/Speech: cooperative, good eye contact Thought/Hallucinations: normal thought pattern, no apparent hallucination Affect: appropriate Skin: warm/dry, normal color; No: rash Progress Results/Orders Results/Orders Orders - DELIA ROLLINS NP Drug Screen, Urine (04/18/25 18:14) Vital Signs 04/18/25 18:10 Temp 97.9 Pulse 86 Resp 15 B/P (MAP) 131/81 Pulse Ox 97 Medical Decision Making Findings 44-year-old male does not want to stay in the [place] and is claiming suicidal ideations. I do not believe the patient is suicidal but merely manipulating to not have to stay at the [place]. Patient will be discharged Departure Time of Disposition: 18:27 Disposition: 01 HOME / SELF CARE / HOMELESS Impression: Primary Impression: General medical exam Condition: Stable Discharge Instructions: Medical Screening Exam Additional Instructions: Follow up with primary care, the [facility], [place] or contact your sister for further support at this time. A resource packet has been provided for you. Referrals: NO PRIMARY CARE PROVIDER (PCP) Education Educated: Patient Educated regarding: diagnosis, treatment, need for follow up Signature Scribe Signature: No scribe Attestation: The note accurately reflects work and decisions made by me.Delia SAL 04/18/25 18:28 DELIA ROLLINS NP Apr 18, 2025 18:27
[2025-04-18 18:35] VITALS: BP 130/82; PULSE 82; RESP 14; O2SAT 98
== END 2025-04-18 18:39 | disposition home or self-care (01) ==
LOC: ER 18:02
DX: Z00.8 Encounter for other general examination (principal); F15.90 Other stimulant use, unspecified, uncomplicated; F31.9 Bipolar disorder, unspecified; Z87.11 Personal history of peptic ulcer disease
CPT/HCPCS: 99282

== ENCOUNTER 2025-04-26 17:52 | Emergency (ER) | payer MEDICAID ==
[~2025-04-26] VITALS: Ht 165.1 cm; Wt 71.8 kg
[2025-04-26 17:58] VITALS: BP 159/111; PULSE 141; RESP 18; O2SAT 98
[2025-04-26 20:06] VITALS: TEMP 98.3
== END 2025-04-26 20:09 | disposition left against medical advice (07) ==
LOC: ER 17:53
DX: F41.9 Anxiety disorder, unspecified (principal); Z53.21 Procedure and treatment not carried out due to patient leaving prior to being seen by health care provider